=== PATIENT | female | born 1990 | race American Indian/Alaskan Native ===

== ENCOUNTER 2019-09-16 07:20 | Emergency (ER) | payer SELFPAY ==
[2019-09-16 07:25] VITALS: BP 137/92
[2019-09-16] MEDS ORDERED: PENICILLIN G BENZATHINE 1.2 MILLION UNIT/2 ML INJ IM ONE (07:47)
[2019-09-16] MEDS ORDERED: HYDROcodone/ACETAMINOPHEN 10-325MG TAB PO ONE (07:47)
--- NOTE | 2019-09-16 07:47 | Emergency Department Report ---
Abscess Boil HPI - HPI Chief Complaint: Dental/Oral Stated Complaint: HEADACHE Time Seen by Provider: 09/16/19 07:46 Duration: 2 Days Location: Other Severity: Mild History: Yes Pain, No Fever, No Purulent Drainage, No Numbness, No Foreign Body, No Previous History, No Insect Bite HPI: 29 YO COMES TO ER WITH DENTAL PAIN LEFT LOWER MOLAR . NO FEVER OR PAIN. OTC MEDS NOT WORKING. DID NOT SEE DMD. Home Medications: Previous Rx's Medication Instructions Recorded Last Taken Type Amoxicillin [Trimox CAP] 500 mg PO BID #20 capsule 09/16/19 Unknown Rx Ibuprofen [Motrin] 800 mg PO Q8HR PRN #30 tablet 09/16/19 Unknown Rx Allergies/Adverse Reactions: Allergies Allergy/AdvReac Type Severity Reaction Status Date / Time No Known Allergies Allergy Verified 10/16/16 03:46 ED Review of Systems ROS: Stated complaint: HEADACHE Other details as noted in HPI Comment: All other systems reviewed and negative ED Past Medical Hx - Past Medical History Previous Medical History?: No Hx Hypertension: No Hx Diabetes: No Hx Deep Vein Thrombosis: No Hx Renal Disease: No Hx Sickle Cell Disease: No Hx Seizures: No Hx Asthma: No - Surgical History Past Surgical History?: No - Family History Family history: no significant - Social History Smoking Status: Never Smoker Substance Use Type: None - Medications Home Medications: Home Medications Medication Instructions Recorded Confirmed Last Taken Type Amoxicillin [Trimox CAP] 500 mg PO BID #20 capsule 09/16/19 Unknown Rx Ibuprofen [Motrin] 800 mg PO Q8HR PRN #30 tablet 09/16/19 Unknown Rx ED Abscess Boil Physical Exam - Exam General: Vital signs noted. No distress. Alert and acting appropriately. Exam: Yes Tenderness, Yes Normal Neurologic Exam, Yes Normal Circulation, No Fluctuance, No Surrounding Cellulites/Erythema, No Lymphangitis, No Crepitation, No Heart Murmur Exam: ALERT AND ORIENTED. S1S2. LUNGS CTA. NO FOCAL NEURO DEF. FULL ROM ALL EXTREMITIES. SKIN WARM AND DRY. ABD SNT. MANDIBULAR LEFT MOLAR PAIN WITH GINGIVITIS. NO LUDWIGS. NO ABSCESS NOTED. TAKING PO ED Course Vital Signs 09/16/19 07:24 Temperature 97.9 F Pulse Rate 69 Respiratory 16 Rate Blood Pressure 137/92 O2 Sat by Pulse 96 Oximetry Critical care attestation.: If time is entered above; I have spent that time in minutes in the direct care of this critically ill patient, excluding procedure time. ED Medical Decision Making - Medical Decision Making DENTAL CARIES NO TRISMUS TAKING PO NO LUDWIGS NO ABSCESS MEDICATED IN ER DC HOME WITH DMD FOLLOW UP Vital Signs 09/16/19 07:24 Temperature 97.9 F Pulse Rate 69 Respiratory 16 Rate Blood Pressure 137/92 O2 Sat by Pulse 96 Oximetry - Differential Diagnosis DENTAL ED Disposition Clinical Impression: Dental caries Disposition: DC- TO HOME OR SELFCARE Is pt being admited?: No Does the pt Need Aspirin: No Condition: Stable Instructions: Toothache (ED) Additional Instructions: MEDS ORDERED TODAY FOLLOW UP WITH DENTIST AT END OF THE WEEK MOTRIN AND TYLENOL CAN BE USED FOR PAIN TAKE THESE WITH FOOD ANTIBIOTIC WILL TAKE PAIN AWAY DIET TOLERATED Referrals: [facility] [Outside] - 3-5 Days [facility] [Outside] - 3-5 Days Time of Disposition: 07:47
== END 2019-09-16 08:19 | disposition home or self-care (01) ==
LOC: ED 07:20
DX: K02.9 Dental caries, unspecified (principal)
CPT/HCPCS: 99282; J0561